=== PATIENT | male | born 1990 | race Caucasian/White ===

== ENCOUNTER → 2021-05-01 | Outpatient (CLI) | payer OTHER, MEDICAID ==
[~2021-05-01] MED LIST: ASPI1TAB6 PO; anexsia PO
== END ==
LOC: M LABSMTC 09:12
PROVIDERS: ATTEND Anesthesiology
DX: Z11.52 Encounter for screening for COVID-19 (principal); Z20.822 Contact with and (suspected) exposure to COVID-19

== ENCOUNTER 2021-06-09 14:13 | Day surgery (SDC) | payer OTHER ==
[~2021-06-09] VITALS: Ht 180.3 cm; Wt 64.9 kg
[~2021-06-09 14:13] MED LIST changes: +AMPICILLIN SOD/SULBACTAM SOD 3 GM in D5W MINI-BAG PLUS 100 ML IV ONE; +FAMO20TA5 PO; +LR 1,000 ML IV ONE; +SUCR1TAB56 PO; +dexameTHASONE 4 MG/ML 1ML VIAL (J1100 PER 1MG) IV ONE
--- OUTSIDE RECORDS SUMMARY | 2021-06-09 14:18 | CCD ---
Author Author [facility] Organization [facility] Address Unknown Phone Unavailable Care Team Providers Care Shank Skinner Name Role Phone Verena Andrew PA Unavailable Unavailable Kamran, F Jayro PA Unavailable Unavailable Kamran, F Jayro PA Unavailable Unavailable Lagrange, F Jayro PA Unavailable Unavailable Lagrange, F Jayro PA Unavailable Unavailable Kamran, F Jayro PA Unavailable Unavailable Kamran, F Jayro PA Unavailable Unavailable Kamran, F Jayro PA Unavailable Unavailable Kamran, F Jayro PA Unavailable Unavailable Kamran, F Jayro PA Unavailable Unavailable Hadian, Bruno Unavailable Unavailable Hadian, Bruno Unavailable Unavailable Hadian, Bruno Unavailable Unavailable Hadian, Bruno Unavailable Unavailable Hadian, Bruno Unavailable Unavailable Hadian, Bruno Unavailable Unavailable Hadian, Bruno Unavailable Unavailable Hadian, Bruno Unavailable Unavailable Hadian, Bruno Unavailable Unavailable Hadian, Bruno Unavailable Unavailable Hadian, Bruno Unavailable Unavailable Hadian, Bruno Unavailable Unavailable Hadian, Bruno Unavailable Unavailable Hadian, Bruno Unavailable Unavailable Hadian, Bruno Unavailable Unavailable Hadian, Bruno Unavailable Unavailable Hadian, Bruno Unavailable Unavailable Hadian, Rbuno Unavailable Unavailable Hadian, Bruno Unavailable Unavailable Hadian, Bruno Unavailable Unavailable Hadian, Bruno Unavailable Unavailable Hadian, Bruno Unavailable Unavailable Hadian, Bruno Unavailable Unavailable Hadian, Bruno Unavailable Unavailable Hadian, Bruno Unavailable Unavailable Hadian, Bruno Unavailable Unavailable Hadian, Bruno Unavailable Unavailable Hadian, Bruno Unavailable Unavailable Hadian, Bruno Unavailable Unavailable Hadian, Bruno Unavailable Unavailable Hadian, Bruno Unavailable Unavailable Hadian, Bruno Unavailable Unavailable Hadian, Bruno Unavailable Unavailable Hadian, Bruno Unavailable Unavailable Hadian, Bruno Unavailable Unavailable Hadian, Bruno Unavailable Unavailable Hadian, Bruno Unavailable Unavailable Hadian, Bruno Unavailable Unavailable Hadian, Bruno Unavailable Unavailable Hadian, Bruno Unavailable Unavailable Hadian, Bruno Unavailable Unavailable Hadian, Bruno Unavailable Unavailable UnkenholKarri matt MD Unavailable Unavailable UnkenholKarri matt MD Unavailable Unavailable UnkenholKarri matt MD Unavailable Unavailable UnkenholKarri matt MD Unavailable Unavailable UnkenholKarri matt MD Unavailable Unavailable Unkenholvernell M Darwin MD Unavailable Unavailable MODESTA, A MARTINE PA Unavailable Unavailable MODESTA, A MARTINE PA Unavailable Unavailable MODESTA, A MARTINE PA Unavailable Unavailable MODESTA, A MARTINE PA Unavailable Unavailable MODESTA, A MARTINE PA Unavailable Unavailable MODESTA, A MARTINE PA Unavailable Unavailable MODESTA, A MARTINE PA Unavailable Unavailable MODESTA, A MARTINE PA Unavailable Unavailable MODESTA, A MARTINE PA Unavailable Unavailable MODESTA, A MARTINE PA Unavailable Unavailable MODESTA, A MARTINE PA Unavailable Unavailable MODESTA, A MARTINE PA Unavailable Unavailable MODESTA, A MARTINE PA Unavailable Unavailable Cougler, S Jose Daniel PHYTOPATHOLOGY TEACHER Unavailable Unavailable Cougler, S Jose Daniel PHYTOPATHOLOGY TEACHER Unavailable Unavailable Cougler, S Jose Daniel PHYTOPATHOLOGY TEACHER Unavailable Unavailable Cougler, S Jose Adniel PHYTOPATHOLOGY TEACHER Unavailable Unavailable Cougler, S Jose Daniel PHYTOPATHOLOGY TEACHER Unavailable Unavailable Cougler, S Jose Daniel PHYTOPATHOLOGY TEACHER Unavailable Unavailable Cougler, S Jose Daniel PHYTOPATHOLOGY TEACHER Unavailable Unavailable Cougler, S Jose Daniel PHYTOPATHOLOGY TEACHER Unavailable Unavailable Cougler, S Jose Daniel PHYTOPATHOLOGY TEACHER Unavailable Unavailable Cougler, S Jose Daniel PHYTOPATHOLOGY TEACHER Unavailable Unavailable Cougler, S Jose Daniel PHYTOPATHOLOGY TEACHER Unavailable Unavailable Cougler, S Jose Daniel PHYTOPATHOLOGY TEACHER Unavailable Unavailable Cougler, S Jose Daniel PHYTOPATHOLOGY TEACHER Unavailable Unavailable Cougler, S Jose Daniel PHYTOPATHOLOGY TEACHER Unavailable Unavailable Cougler, S Jose Daniel PHYTOPATHOLOGY TEACHER Unavailable Unavailable Cougler, S Jose Daniel PHYTOPATHOLOGY TEACHER Unavailable Unavailable Cougler, S Jose Daniel PHYTOPATHOLOGY TEACHER Unavailable Unavailable Cougler, S Jose Daniel PHYTOPATHOLOGY TEACHER Unavailable Unavailable Cougler, S Jose Daniel PHYTOPATHOLOGY TEACHER Unavailable Unavailable Cougler, S Jose Daniel PHYTOPATHOLOGY TEACHER Unavailable Unavailable Cougler, S Jose Daniel PHYTOPATHOLOGY TEACHER Unavailable Unavailable Cougler, S Jose Daniel PHYTOPATHOLOGY TEACHER Unavailable Unavailable Cougler, S Jose Daniel PHYTOPATHOLOGY TEACHER Unavailable Unavailable Cougler, S Jose Daniel PHYTOPATHOLOGY TEACHER Unavailable Unavailable Cougler, S Jose Adniel PHYTOPATHOLOGY TEACHER Unavailable Unavailable Cougler, S Jose Daniel PHYTOPATHOLOGY TEACHER Unavailable Unavailable Cougler, S Jose Daniel PHYTOPATHOLOGY TEACHER Unavailable Unavailable Cougler, S Jose Daniel PHYTOPATHOLOGY TEACHER Unavailable Unavailable Cougler, S Jose Daniel PHYTOPATHOLOGY TEACHER Unavailable Unavailable Cougler, S Jose Daniel PHYTOPATHOLOGY TEACHER Unavailable Unavailable Cougler, S Jose Daniel PHYTOPATHOLOGY TEACHER Unavailable Unavailable Cougler, S Jose Daniel PHYTOPATHOLOGY TEACHER Unavailable Unavailable Cougler, S Jose Daniel PHYTOPATHOLOGY TEACHER Unavailable Unavailable Cougler, S Jose Daniel PHYTOPATHOLOGY TEACHER Unavailable Unavailable Cougler, S Jose Daniel PHYTOPATHOLOGY TEACHER Unavailable Unavailable Cougler, S Jose Daniel PHYTOPATHOLOGY TEACHER Unavailable Unavailable Cougler, S Jose Daniel PHYTOPATHOLOGY TEACHER Unavailable Unavailable Cougler, S Jose Daniel PHYTOPATHOLOGY TEACHER Unavailable Unavailable Cougler, S Jose Daniel PHYTOPATHOLOGY TEACHER Unavailable Unavailable Cougler, S Jose Daniel PHYTOPATHOLOGY TEACHER Unavailable Unavailable Cougler, S Jose Daniel PHYTOPATHOLOGY TEACHER Unavailable Unavailable Cougler, S Jose Daniel PHYTOPATHOLOGY TEACHER Unavailable Unavailable Cougler, S Jose Daniel PHYTOPATHOLOGY TEACHER Unavailable Unavailable Cougler, S Jose Daniel PHYTOPATHOLOGY TEACHER Unavailable Unavailable Cougler, S Jose Daniel PHYTOPATHOLOGY TEACHER Unavailable Unavailable Ivan Harmon MD Unavailable Unavailable Joseph Nelson Unavailable + NelsonJoseph Unavailable + NelsonJoseph Unavailable Joseph Nelson Unavailable Joseph Nelson Unavailable Joseph Nelson Unavailable Joseph Nelson Unavailable Joseph Nelson Unavailable + Joseph Nelson Unavailable NelsonJoseph Unavailable Joseph Nelson Unavailable Ivan Harmon MD Unavailable Unavailable Ivan Harmon MD Unavailable Unavailable Re-disclosure Warning The records that you are about to access may contain information from federally-assisted alcohol or drug abuse programs. If such information is present, then the following federally mandated warning applies: This information has been disclosed to you from records protected by federal confidentiality rules (42 CFR part 2). The federal rules prohibit you from making any further disclosure of this information unless further disclosure is expressly permitted by the written consent of the person to whom it pertains or as otherwise permitted by 42 CFR part 2. A general authorization for the release of medical or other information is NOT sufficient for this purpose. The Federal rules restrict any use of the information to criminally investigate or prosecute any alcohol or drug abuse patient.The records that you are about to access may contain highly sensitive health information, the redisclosure of which is protected by Article 27-F of the [facility] Public Health law. If you continue you may have access to information: Regarding HIV / AIDS; Provided by facilities licensed or operated by the [facility] Office of Mental Health; or Provided by the [facility] Office for People With Developmental Disabilities. If such information is present, then the following [facility] mandated warning applies: This information has been disclosed to you from confidential records which are protected by state law. State law prohibits you from making any further disclosure of this information without the specific written consent of the person to whom it pertains, or as otherwise permitted by law. Any unauthorized further disclosure in violation of state law may result in a fine or fci sentence or both. A general authorization for the release of medical or other information is NOT sufficient authorization for further disc losure. Allergies and Adverse Reactions Type Description Substance Reaction Status Data Source(s ) Drug allergy Drug allergy hydrocodone (From Vicodin) [facility] Drug allergy Drug allergy codeine phosphate (From Tylenol-Codeine #3) [facility] Drug allergy Drug allergy acetaminophen (From Vicodin) [facility] Encounters Encounter Providers Location Date Indications Data Source(s ) Outpatient Attender: Bruno Jordan [facility] 08:18:00 AM EST - 06/05/2021 08:19:00 AM EST PREOP [facility] PREOP Patient discharged. Emergency Attender: Trini Harmon MDAttender: Trini Harmon MD ED-ED 04/29/2021 08:13:00 AM EDT - 04/29/2021 10:40:00 AM EDT STOMACH ISSUES [facility] STOMACH ISSUES Patient discharged. Emergency Attender: Darwin Singleton MD ED-ED 02/05 11:37:00 AM EDT - 02/22/2021 02:12:00 PM EDT STOMACH PAIN [facility] STOMACH PAIN Patient discharged. Outpatient [facility] 11/21/2020 09:52:00 AM EDT [facility] Emergency Attender: MARTINE MILLAN ED-ED 11/20 09:55:00 PM EDT - 11/21/2020 02:50:00 AM EDT RT SIDE PAIN, HARD TIME BREATHING [facility] RT SIDE PAIN, HARD TIME BREATHING Patient discharged. Emergency Attender: Manuelito MILLAN ED-ED 021 05:07:00 AM EST - 08/15/2020 05:49:00 AM EST MOUTH PAIN [facility] MOUTH PAIN Patient discharged. Outpatient Attender: Bruno Jordan ED-LABPNP 09:42:00 AM EST - 07/06/2020 09:43:00 AM EST Z20.828 [facility] Z20.828 Patient discharged. Outpatient [facility] 05/15/2020 02:25:00 PM EST [facility] Emergency Attender: Jose Daniel Patrick NP ED-ED 05/14 04:13:00 PM EST - 05/14/2020 06:09:00 PM EST STOMACH PAIN [facility] STOMACH PAIN Patient discharged. Outpatient [facility] 04/20/2020 08:11:00 PM EDT [facility] Emergency Attender: Jayro MILLAN ED-ED 02:34:00 PM EDT - 04/20/2020 04:15:00 PM EDT VOMITING X3DAYS [facility] VOMITING X3DAYS Patient discharged. Medications Medication Brand Name Start Date Product Form Dose Route Admi nistrative Instructions Pharmacy Instructions Status Indications Reaction Description Data Source(s) Ondansetron 4 MG Disintegrating Oral Tablet ONDANSETRON 05/01/2021 12:00:00 AM EDT tablet,disintegrating 12 DISSOLVE O NE TABLET ON TONGUE EVERY 8 HOURS NEEDED FOR NAUSEA DISSOLVE ONE TABLET ON TONGUE EVERY 8 HO URS NEEDED FOR NAUSEA SOLD: 05/03/2021 [facility] Famotidine 20 MG Oral Tablet FAMOTIDINE 05/01/2021 12:00:00 AM EDT tab let 15 TAKE ONE TABLET BY MOUTH EVERY DAY AT BEDTIME TAKE ONE TABLET BY MOUTH EVERY DAY AT BEDTIME SOLD: 05/03/2021 [facility] 1 gram 02/22/2021 12:00:00 AM EDT tablet 60 TAKE ONE TABLET BY MOUTH TWICE A DAY TAKE ONE TABLET BY MOUTH TWICE A DAY SOLD: 02/22/2021 [facility] Famotidine 20 MG Oral Tablet FAMOTIDINE 02/22/2021 12:00:00 AM EDT tab let 60 TAKE ONE TABLET BY MOUTH TWICE A DAY TAKE ONE TABLET BY MOUTH TWICE A DAY SOLD: 02/22/2021 [facility] 300 mg 08/15/2020 12:00:00 AM EST capsule 40 TAKE ONE CAPSULE BY MOUTH FOUR TIMES A DAY FOR 10 DAYS TAKE ONE CAPSULE BY MOUTH FOUR TIMES A DAY FOR 10 DAYS SOLD: 08/22/2020 [facility] 20 mg 05/14/2020 12:00:00 AM EST capsule,delayed release (DR/EC) 30 TAKE ONE CAPSULE BY MOUTH EVERY DAY TAKE ONE CAPSULE BY MOUTH EVERY DAY SOLD: 05/15/2020 [facility] Insurance Providers Payer name Policy type / Coverage type Policy ID Covered green party ID Covered green party's relationship to [place] Policy [place] Plan Information [facility] [id number] Attending [id number] [facility] [id number] SP [id number] [place] [id number] SP [id number] C [facility] [id number] SP [id number] [facility] [id number] S [id number] [facility] [id number] S [id number] [facility] [id number] Unemployed [id number] SELF PAY 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 [id number] MEDICAID [id number] S [id number] SELF-PAY UNAVAILABLE S UNAVAILA BLE SELF PAY UNAVAILABLE SP UNAVAILA BLE MEDICAID [id number] [facility] PLAN [id number] 18 [id number] MEDICAID -O/P [id number] MEDICAID P [id number] S [id number] [facility] [id number] MEDICAID [id number] S [id number] [facility] 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 spital Surgeries/Procedures Procedure Description Date Indications Data Source(s) URNLS DIP STICK/TABLET RGNT AUTO W/O MICROSCOPY URINALYSIS A UTO W/O SCOPE 02/22/2021 12:00:00 AM [facility] BLOOD COUNT COMPLETE AUTO&AUTO DIFRNTL WBC COUNT COMPLETE CB C W/AUTO DIFF WBC 02/22/2021 12:00:00 AM [facility] LIPASE ASSAY OF LIPASE 02/22/2021 12:00:00 AM [facility] COMPREHENSIVE METABOLIC PANEL COMPREHEN METABOLIC PANEL 02/05 12:00:00 AM [facility] Non-covered item or service NON-COVERED ITEM OR SERVICE 02/05 12:00:00 AM [facility] Infusion, normal saline solution , 1000 cc 02/22/2021 12:00:00 AM [facility] Injection, pantoprazole sodium, per vial 02/22/2021 12 :00:00 AM [facility] Injection, ondansetron hydrochloride, per 1 mg 021 12:00:00 AM [facility] THERAPEUTIC INJECTION IV PUSH EACH NEW DRUG TX/PRO/DX INJ NE W DRUG ADDON 02/22/2021 12:00:00 AM EDT [facility] THER PROPH/DX NJX IV PUSH SINGLE/1ST SBST/DRUG THER/PROPH/DI AG INJ IV PUSH 02/22/2021 12:00:00 AM EDT [facility] EMERGENCY DEPARTMENT VISIT HIGH/URGENT SEVERITY EMERGENCY DE PT VISIT 02/22/2021 12:00:00 AM EDT [facility] CT ABDOEN & PELVIS W/CONTRAST MATERIAL 11/20/2020 12:0 0:00 AM EDT [facility] CT THORAX W/CONTRAST MATERIAL 11/20/2020 12:00:00 AM E DT [facility] Low osmolar contrast material, 300-399 mg/ml iodine concentr ation, per ml 11/20/2020 12:00:00 AM EDT [facility] [address]37 11/20/2020 12:00:00 AM EDT [facility] URINALYSIS MICROSCOPIC ONLY 11/20/2020 12:00:00 AM [facility] THROMBOPLASTIN TIME PARTIAL PLASMA/WHOLE BLOOD 021 12:00:00 AM [facility] PROTHROMBIN TIME [facility]20[facility] [address] 12:00:00 AM EDT [facility] 68331 11/20/2020 12:00:00 AM EDT [facility] MAGNESIUM 11/20/2020 12:00:00 AM EDT [facility] 35901 11/20/2020 12:00:00 AM EDT [facility] NATRIURETIC PEPTIDE 11/20/2020 12:00:00 AM [facility] TROPONIN QUANTITATIVE 11/20[facility]IBR[facility] DGRADJ PRODUCTS D-DIMER QUANTITATIVE 11/20/2020 12:00:00 AM [facility] Injection, lorazepam, 2 mg 11/20/2020 12:00:00 AM [facility] Results ID Date Data Source [id number] 06/05/2021 08:05:00 AM [facility] Name Value Range Interpretation Code Description Data Shawanda rce(s) Supporting Document(s) Respiratory specimen severe acute respir atory syndrome coronavirus 2 (SARS-CoV-2) RNA Negative (qualifier value) [facility] This lab was ordered by [facility] and reported by . ID Date Data Source [id number] 06/06/2021 07:35:00 AM EST [facility] Name Value Range Interpretation Code Description Data Shawanda rce(s) Supporting Document(s) SARS-CoV-2 RNA INHOUSE Negative Normal (applies to non-n umeric results) [facility] THIS IS A STATE REPORTABLE COMMUNICABLE DISEASE. Testing was performed using the MediSens COVID-19 MDx Assay. This test has been authorized by FDA under an (Emergency Use Authorization) EUA for use by authorized laboratories for individuals who are suspected of COVID-19 by their healthcare provider. This test is only authorized for the duration of the declaration that circumstances exist justifying the authorization of emergency use of in vitro diagnostic tests for detection and/or diagnosis of SARS-CoV-2. Methodology: Endpoint RT-PCR. Fact sheets for this EUA assay can be found at the following links: Providers: https://www.fda.gov/media/344633/download Patients : https://www.fda.gov/media/644597/download Negative results do not preclude SARS-CoV-2 infection and should not be used as the sole basis for patient management decisions. Negative results must be combined with clinical observations,patient history, and epidemiological information. ID Date Data Source [id number] 05/01/2021 09:30:00 AM [facility]T [facility] Name Value Range Interpretation Code Description Data Shawanda rce(s) Supporting Document(s) SARS coronavirus 2 RNA [Presence] in Res piratory specimen by STEPH with probe detection [facility] This lab was ordered by [facility] a nd reported by [facility]. ID Date Data Source [id number] 04/29/2021 09:52:00 AM EDT [facility] Name Value Range Interpretation Code Description Data Shawanda rce(s) Supporting Document(s) Sodium 137 mmol/L 136-145 Normal (applies to non-numeric resul ts) [facility] Potassium 3.5-5.1 Normal (applies to non-numeric resul ts) [facility] Chloride 97 mmol/L 98-107 Below low normal [facility] spital Carbon Dioxide CO2 21-32 Normal (applies to non-numer ic results) [facility] Anion Gap 5.0-16.0 Normal (applies to non-numeric resul ts) [facility] BUN 20 mg/dL 7-18 Above high normal [facility] ospital Creatinine,Serum 0.8-1.5 Normal (applies to non-numeric results) [facility] GFR >60 Normal (applies to non-numeric results) [facility] Glucose Level 117 mg/dL 60-[address] [facility] Reference range is only applicable when patient is fasting Note the following drug interference: Sulfasalazine Sulfapyridine Can see falsely depressed Can see falsely elevated result with up to 17% results with up to 11% decrease in measurement increase in measurement Recommend patients be collected for this test prior to administration of either drug. Calcium 8.5-10.1 Normal (applies to non-numeric resul ts) [facility] Bilirubin,Total 0.1-1.9 Normal (applies to non-numeric results) [facility] SGOT(AST) 39 U/L 15-37 Above high normal [facility] ospital Note the following drug interference: Sulfasalazine Sulfapyridine Can see falsely depressed Can see falsely elevated result with up to 10% results with up to 10% decrease in measurement increase in measurement Recommend patients be collected for this test prior to administration of either drug. SGPT(ALT) 56 U/L 12-78 Normal (applies to non-numeric resul ts) [facility] Note the following drug interference: Sulfasalazine Sulfapyridine Can see falsely depressed Can see falsely elevated result with up to 29% results with up to 10% decrease in measurement increase in measurement Recommend patients be collected for this test prior to administration of either drug. Alkaline Phosphatase 53 U/L 38-126 Normal (applies to non-num jocelyn results) [facility] can increase Alkaline Phosp le vels up to 2 times the normal adult value. Normal values for children and adolescents are 2 to 3 times the normal adult value. Total Protein 6.0-8.2 Normal (applies to non-numeric re sults) [facility] Albumin Level 3.4-5.0 Normal (applies to non-numeric re sults) [facility] ID Date Data Source [id number] 04/29/2021 09:52:00 AM EDT [facility] Name Value Range Interpretation Code Description Data Shawanda rce(s) Supporting Document(s) Magnesium 1.8-2.4 Normal (applies to non-numeric resul ts) [facility] ID Date Data Source [id number] 04/29/2021 09:52:00 AM EDT [facility] Name Value Range Interpretation Code Description Data Shawanda rce(s) Supporting Document(s) Lipase 78 U/L 73-393 Normal (applies to non-numeric resul ts) [facility] ID Date Data Source [id number] 04/29/2021 09:41:00 AM EDT [facility] Name Value Range Interpretation Code Description Data Shawanda rce(s) Supporting Document(s) White Blood Count 3.5-10.5 Normal (applies to non-numeri c results) [facility] Red Blood Count 4.30-5.70 Normal (applies to non-numeric results) [facility] Hemoglobin 13.5-17.5 Normal (applies to non-numeric resul ts) [facility] Hematocrit 38.8-50.0 Normal (applies to non-numeric resul ts) [facility] Mean Corpuscular Volume 81.2-95.1 Normal (applies to non- numeric results) [facility] Mean Corpuscular Hgb 25.6-32.2 Normal (applies to non-num jocelyn results) [facility] Mean Corpuscular Hgb Conc 32.0-36.0 Normal (applies to no n-numeric results) [facility] Red Cell Distribution Width 11.8-15.6 Normal (appli es to non-numeric results) [facility] Platelet Count 241 x10 3/uL 150-450 Normal (applies to non-numeric results) [facility] Mean Platelet Volume 9.4-12.4 Below low normal [facility] Neutrophils% (Auto) 31.0-71.0 Above high normal [facility] Lymphocytes% (Auto) 20.0-55.0 Below low normal [facility] Monocytes% (Auto) 4.0-12.0 Normal (applies to non-numeri c results) [facility] Eosinophils% (Auto) 1.0-8.0 Below low normal [facility] Basophils% (Auto) 0.0-2.0 Normal (applies to non-numeri c results) [facility] Immature Granulocytes% (Auto) 0.0-2.0 Normal (cortney lies to non-numeric results) [facility] Neutrophils# (Auto) 1.50-6.20 Normal (applies to non-nume danilo results) [facility] [facility] Lymphocytes# (Auto) 1.20-4.00 Below low normal [facility] Monocytes# (Auto) 0.00-0.90 Normal (applies to non-numeri c results) [facility] Eosinophils# (Auto) 0.00-0.50 Normal (applies to non-nume danilo results) [facility] Basophils# (Auto) 0.00-0.20 Normal (applies to non-numeri c results) [facility] Immature Granulocytes# (Auto) 0.00-7.00 No rmal (applies to non-numeric results) [facility] Slide Reviewed By Normal (applies to non-numeri c results) [facility] Slide has been reviewed and findings con firmed by a technologist/strain technician. ID Date Data Source [id number] 02/23/2021 11:39:00 AM EDT [facility] Collected By: Nurse Initials: fiorella Time Collected: 1310 Name Value Range Interpretation Code Description Data Shawanda rce(s) Supporting Document(s) Color,Urine Colorl-Dk Y Normal (applies to non-numeric res ults) [facility] Clarity,Urine Clear Normal (applies to non-numeric re sults) [facility] Specific Cornucopia,Urine 1.005-1.030 [facility] pH,Urine 5.0-8.0 Normal (applies to non-numeric resul ts) [facility] Protein,Urine Negative Normal (applies to non-numeric re sults) [facility] Glucose,Urine Negative Normal (applies to non-numeric re sults) [facility] Ketones,Urine Negative [facility] Blood,Urine Negative Normal (applies to non-numeric resu lts) [facility] Bilirubin,Urine Negative [facility] pital Urobilinogen,Urine 0.2-1.0 Normal (applies to non-numer ic results) [facility] Leukocyte Esterase,Urine Negative Normal (applies to non -numeric results) [facility] Nitrite,Urine Negative Normal (applies to non-numeric re sults) [facility] ID Date Data Source [id number] 02/23/2021 11:39:00 AM EDT [facility] Name Value Range Interpretation Code Description Data Shawanda rce(s) Supporting Document(s) Sodium 139 mmol/L 136-145 Normal (applies to non-numeric resul ts) [facility] Potassium 3.5-5.1 Normal (applies to non-numeric resul ts) [facility] Chloride 96 mmol/L 98-107 Below low normal [facility] spital Carbon Dioxide CO2 21-32 Normal (applies to non-numer ic results) [facility] Anion Gap 5.0-16.0 Normal (applies to non-numeric resul ts) [facility] BUN 21 mg/dL 7-18 Above high normal [facility] ospital Creatinine,Serum 0.8-1.5 Normal (applies to non-numeric results) [facility] GFR >60 Normal (applies to non-numeric results) [facility] Glucose Level 135 mg/dL 60-[address] [facility] Reference range is only applicable when patient is fasting Note the following drug interference: Sulfasalazine Sulfapyridine Can see falsely depressed Can see falsely elevated result with up to 17% results with up to 11% decrease in measurement increase in measurement Recommend patients be collected for this test prior to administration of either drug. Calcium 8.5-10.1 Normal (applies to non-numeric resul ts) [facility] Bilirubin,Total 0.1-1.9 Normal (applies to non-numeric results) [facility] SGOT(AST) 16 U/L 15-37 Normal (applies to non-numeric resul ts) [facility] Note the following drug interference: Sulfasalazine Sulfapyridine Can see falsely depressed Can see falsely elevated result with up to 10% results with up to 10% decrease in measurement increase in measurement Recommend patients be collected for this test prior to administration of either drug. SGPT(ALT) 26 U/L 12-78 Normal (applies to non-numeric resul ts) [facility] Note the following drug interference: Sulfasalazine Sulfapyridine Can see falsely depressed Can see falsely elevated result with up to 29% results with up to 10% decrease in measurement increase in measurement Recommend patients be collected for this test prior to administration of either drug. Alkaline Phosphatase 68 U/L 38-126 Normal (applies to non-num jocelyn results) [facility] can increase Alkaline Phosp le vels up to 2 times the normal adult value. Normal values for children and adolescents are 2 to 3 times the normal adult value. Total Protein 6.0-8.[address] [facility] Albumin Level 3.4-5.0 Normal (applies to non-numeric re sults) [facility] ID Date Data Source [id number] 02/23/2021 11:39:00 AM EDT [facility] Name Value Range Interpretation Code Description Data Shawanda rce(s) Supporting Document(s) Lipase 73 U/L 73-393 Normal (applies to non-numeric resul ts) [facility] ID Date Data Source [id number] 02/23/2021 11:39:00 AM EDT [facility] Name Value Range Interpretation Code Description Data Shawanda rce(s) Supporting Document(s) White Blood Count 3.5-10.5 Above high normal [facility] Red Blood Count 4.30-5.70 Normal (applies to non-numeric results) [facility] Hemoglobin 13.5-17.5 Normal (applies to non-numeric resul ts) [facility] Hematocrit 38.8-50.0 Normal (applies to non-numeric resul ts) [facility] Mean Corpuscular Volume 81.2-95.1 Normal (applies to non- numeric results) [facility] Mean Corpuscular Hgb 25.6-32.2 Normal (applies to non-num jocelyn results) [facility] Mean Corpuscular Hgb Conc 32.0-36.0 Normal (applies to no n-numeric results) [facility] Red Cell Distribution Width 11.8-15.6 Normal (appli es to non-numeric results) [facility] Platelet Count 380 x10 3/uL 150-450 Normal (applies to non-numeric results) [facility] Mean Platelet Volume 9.4-12.4 Below low normal [facility] Neutrophils% (Auto) 31.0-71.0 Above high normal [facility] Lymphocytes% (Auto) 20.0-55.0 Below low normal [facility] Monocytes% (Auto) 4.0-12.0 Normal (applies to non-numeri c results) [facility] Eosinophils% (Auto) 1.0-8.0 Below low normal [facility] Basophils% (Auto) 0.0-2.0 Normal (applies to non-numeri c results) [facility] Immature Granulocytes% (Auto) 0.0-2.0 Normal (cortney lies to non-numeric results) [facility] Neutrophils# (Auto) 1.50-6.20 Above high normal [facility] Lymphocytes# (Auto) 1.20-4.00 Normal (applies to non-nume danilo results) [facility] Monocytes# (Auto) 0.00-0.90 Above high normal [facility] Eosinophils# (Auto) 0.00-0.50 Normal (applies to non-nume danilo results) [facility] Basophils# (Auto) 0.00-0.20 Normal (applies to non-numeri c results) [facility] Immature Granulocytes# (Auto) 0.00-7.00 No rmal (applies to non-numeric results) [facility] ID Date Data Source [id number] 11/23/2020 09:11:00 AM EDT [facility] spital Procedure Performed By: [facility] [address] [place] [address] Director: Esau Shearer MD . Name Value Range Interpretation Code Description Data Shawanda rce(s) Supporting Document(s) [facility]rine [facility] ID Date Data Source [id number] 11/20/2020 11:08:00 PM EDT [facility] Collected By: Nurse Initials: JT Time Collected: 2232 Collected By: Nurse Initials: JT Time Collected: 2232 Name Value Range Interpretation Code Description Data [facility] rce(s) Supporting Document(s) Color,Urine Colorl-Dk Y Normal (applies to non-numeric res ults) [facility] Clarity,Urine Clear Normal (applies to non-numeric re sults) [facility] Specific Cornucopia,Urine 1.005-1.030 Normal (applies to non- numeric results) [facility] pH,Urine 5.0-8.0 Normal (applies to non-numeric resul ts) [facility] Protein,Urine Negative Normal (applies to non-numeric re sults) [facility] Glucose,Urine Negative Normal (applies to non-numeric re sults) [facility] Ketones,Urine Negative Normal (applies to non-numeric re sults) [facility] Blood,Urine Negative Normal (applies to non-numeric resu lts) [facility] Bilirubin,Urine Negative Normal (applies to non-numeric results) [facility] Urobilinogen,Urine 0.2-1.0 Normal (applies to non-numer ic results) [facility] Leukocyte Esterase,Urine Negative [facility] Nitrite,Urine Negative Normal (applies to non-numeric re sults) [facility] ID Date Data Source [id number] 11/20/2020 11:08:00 PM EDT [facility] Collected By: Nurse Initials: JT Time Collected: 2232 Collected By: Nurse Initials: JT Time Collected: 2232 Name Value Range Interpretation Code Description Data Shawanda rce(s) Supporting Document(s) RBC,Urine None Seen [facility] WBC,Urine None Seen [facility] Casts,Urine None Seen Normal (applies to non-numeric resu lts) [facility] Epithelial Cells,Urine None - Few Normal (applies to non-n umeric results) [facility] Bacteria,Urine None Seen [facility] ital Mucus,Urine None Seen [facility] ID Date Data Source [id number] 11/20/2020 11:02:00 PM [facility] Name Value Range Interpretation Code Description Data Shawanda rce(s) Supporting Document(s) UDS Benzodiazepines Screen Negative Normal (applies to n on-numeric results) [facility] UDS Cocaine Screen Negative Normal (applies to non-numer ic results) [facility] UDS Ampetamine Screen Negative Normal (applies to non-nu meric results) [facility] UDS Cannabinoids Screen Negative Normal (applies to non- numeric results) [facility] UDS Opiates Screen Negative Normal (applies to non-numer ic results) [facility] UDS Barbiturates Screen Negative Normal (applies to non- numeric results) [facility] Threshold Levels Benzodiazepine 200 ng/mL Cocaine 300 ng/mL Amphetamines 1000 ng/mL Cannabinoids (THC) 50 ng/mL Opiates 300 ng/mL Barbiturates 200 ng/mL All positive findings are presumptive and unconfirmed. Confirmation of positive results are performed only at request of provider. Unconfirmed results must not be used for non-medical purposes (i.e. preemployment and legal purposes) ID Date Data Source [id number] 11/21/2020 12:04:00 AM EDT [facility] Imaging Services Department Imaging Report [address], [place] [address] %(RAD)RES..mtdd.print.filter("line") Name: BREA العلي : 1990 Age/Sex: 30M Ordering Provider: YANA Rosales Med Rec #: [id number] Reg Status: REG ER Room #: Date of Service: 11/20/20 Report Number: [id number] cc:YANA Rosales; PCP None Send Report To: EXAM: CT Abdomen and Pelvis with IV contrast CLINICAL HISTORY: GH sob, rt chest pain TECHNIQUE: Axial computed tomography images of the abdomen and pelvis with intravenous contrast. / All CT scans at this facility use dose modulation, itera tive reconstruction, and/or weight-based dosing when appropriate to reduce radiation dose to as low as reasonably achievable. CONTRAST: with intravenous contrast. With; 100/370 COMPARISON: None provided. FINDINGS: LUNG BASES: The lung bases appear clear. No pleural effusions are seen. LIVER: Unremarkable. GALLBLADDER AND BILE DUCTS: The gallbladder appears within normal limits. No radioopaque gallstones are seen. No biliary ductal dilatation is evident. PANCREAS: Unremarkable. SPLEEN: Unremarkable. ADRENAL GLANDS: Unremarkable. KIDNEYS, URETERS , AND BLADDER: The kidneys appear within normal limits. There is no hydronephrosis or hydroureter. No urinary calculi are seen. STOMACH AND BOWEL: Fluid-filled loops of bowel. No transition point. APPENDIX: No evidence of acute appendicitis on CT examination. PERITONEUM: No free fluid. No free air. LYMPH NODES: No lymphadenopathy is evident. REPRODUCTIVE: Unremarkable as visualized. VASCULATURE: No evidence of abdominal aortic aneurysm. BONES: No aggressive appearing osseous lesion. No acute osseous pathology evident.Impressions: Fluid-filled loops of bowel may be related to enteritis or ileus. No definite transition point is seen to suggest obstruction.b Time portable performed: Fluoroscopy time in seconds: Number of Exposures: Contrast Agent in ml: Isovue 370 Method of Administration: Existing IV REPORT SIGNATURE ON FILE Reported By: Dano Maki MD 11/21/20 0004 Dictation Date/Time: 11/21/203 Transcribed Date/Time: 11/21/203 Ladle Cleaner: Name Value Range Interpretation Code Description Data Shawanda rce(s) Supporting Document(s) ID Date Data Source [id number] 11/20/2020 11:22:00 PM [facility] Name Value Range Interpretation Code Description Data Shawanda rce(s) Supporting Document(s) D-Dimer,Quant 0.19-0.50 Below low normal [facility] The negative predictive value for DVT or PE is at 98% when the result is below the cut off value of 0.50 mg/L FEU. Increases in D-Dimer concentration observed with thromboembolic events can be variable due to localization, size, and age of thrombus. Therefore, a thromboembolic event cannot be diagnosed with certainty on the basis of the reference range. D-Dimers may also be elevated for a variety of disorders including: advanced age, , coronary disease, cancer, liver disease, infection, inflammation, hematoma, DIC, trauma, post surgery, diabetes, thrombolytic therapy, stress, and general hospitialization. D-Dimer levels may be decreased in patients on anticoagulant therapy. ID Date Data Source [id number] 11/20/2020 11:06:00 PM [facility] Name Value Range Interpretation Code Description Data Shawanda rce(s) Supporting Document(s) PT 9.3-11.3 Normal (applies to non-numeric results) [facility] INR Normal (applies to non-numeric results) [facility] The use of INR is restricted to patients on stable oral anticoagulant. Therapeutic Range: 2.0 - 3.0 High Risk Range: 2.5 - 3.5 ID Date Data Source [id number] 11/20/2020 11:06:00 PM [facility] Name Value Range Interpretation Code Description Data Shawanda rce(s) Supporting Document(s) PTT 23.5-34.6 Normal (applies to non-numeric results) [facility] ID Date Data Source [id number] 11/20/2020 11:00:00 PM EDT [facility] Name Value Range Interpretation Code Description Data Shawanda rce(s) Supporting Document(s) Sodium 138 mmol/L 136-145 Normal (applies to non-numeric resul ts) [facility] Potassium 3.5-5.1 Normal (applies to non-numeric resul ts) [facility] Chloride 100 mmol/L 98-107 Normal (applies to non-numeric resul ts) [facility] Carbon Dioxide CO2 21-32 Normal (applies to non-numer ic results) [facility] Anion Gap 5.0-16.0 Above high normal [facility] ospital BUN 18 mg/dL 7-18 Normal (applies to non-numeric results) [facility] Creatinine,Serum 0.8-1.5 Normal (applies to non-numeric results) [facility] GFR >60 Normal (applies to non-numeric results) [facility] Glucose Level 99 mg/dL 60-99 Normal (applies to non-numeric re sults) [facility] Reference range is only applicable when patient is fasting Note the following drug interference: Sulfasalazine Sulfapyridine Can see falsely depressed Can see falsely elevated result with up to 17% results with up to 11% decrease in measurement increase in measurement Recommend patients be collected for this test prior to administration of either drug. Calcium 8.5-10.1 Normal (applies to non-numeric resul ts) [facility] Bilirubin,Total 0.1-1.9 Normal (applies to non-numeric results) [facility] SGOT(AST) 20 U/L 15-37 Normal (applies to non-numeric resul ts) [facility] Note the following drug interference: Sulfasalazine Sulfapyridine Can see falsely depressed Can see falsely elevated result with up to 10% results with up to 10% decrease in measurement increase in measurement Recommend patients be collected for this test prior to administration of either drug. SGPT(ALT) 31 U/L 12-78 Normal (applies to non-numeric resul ts) [facility] Note the following drug interference: Sulfasalazine Sulfapyridine Can see falsely depressed Can see falsely elevated result with up to 29% results with up to 10% decrease in measurement increase in measurement Recommend patients be collected for this test prior to administration of either drug. Alkaline Phosphatase 73 U/L 38-126 Normal (applies to non-num jocelyn results) [facility] can increase Alkaline Phosp le vels up to 2 times the normal adult value. Normal values for children and adolescents are 2 to 3 times the normal adult value. Total Protein 6.0-8.2 Normal (applies to non-numeric re sults) [facility] Albumin Level 3.4-5.0 Normal (applies to non-numeric re sults) [facility] ID Date Data Source [id number] 11/20/2020 11:00:00 PM T [facility] Value Range Interpretation Code Description Data Shawanda rce(s) Supporting Document(s) Lipase 171 U/L 73-393 Normal (applies to non-numeric resul ts) [facility] ID Date Data Source [id number] 11/20/2020 11:00:00 PM [facility] Value Range Interpretation Code Description Data Shawanda rce(s) Supporting Document(s) Salicylate 2.8-20.0 Normal (applies to non-numeric resul ts) [facility] ID Date Data Source [id number] 11/20/2020 11:00:00 PM [facility] Value Range Interpretation Code Description Data Shawanda rce(s) Supporting Document(s) Troponin I 0.000-0.056 Normal (applies to non-numeric resu lts) [facility] ID Date Data Source [id number] 11/20/2020 11:00:00 PM [facility] Value Range Interpretation Code Description Data Shawanda rce(s) Supporting Document(s) Acetaminophen 10.0-30.0 Below low normal [facility] ID Date Data Source [id number] 11/20/2020 11:00:00 PM T [facility] Name Value Range Interpretation Code Description Data Shawanda rce(s) Supporting Document(s) Magnesium 1.8-2.4 Normal (applies to non-numeric resul ts) [facility] ID Date Data Source [id number] 11/20/2020 10:53:00 PM EDT [facility] Name Value Range Interpretation Code Description Data Shawanda rce(s) Supporting Document(s) B-Type Natriuretic Peptide BNP <125 Normal (applies to non-numeric results) [facility] Results of this test should always be us ed in conjunction with the patients medical history, clinical presentation, and other findings. ID Date Data Source [id number] 11/20/2020 10:46:00 PM EDT [facility] Name Value Range Interpretation Code Description Data Shawanda rce(s) Supporting Document(s) Ethanol Less than 10.0 Above high normal [facility] ID Date Data Source [id number] 11/20/2020 10:30:00 PM EDT [facility] Name Value Range Interpretation Code Description Data Shawanda rce(s) Supporting Document(s) White Blood Count 3.5-10.5 Normal (applies to non-numeri c results) [facility] Red Blood Count 4.30-5.70 Normal (applies to non-numeric results) [facility] Hemoglobin 13.5-17.5 Normal (applies to non-numeric resul ts) [facility] Hematocrit 38.8-50.0 Normal (applies to non-numeric resul ts) [facility] Mean Corpuscular Volume 81.2-95.1 Normal (applies to non- numeric results) [facility] Mean Corpuscular Hgb 25.6-32.2 Normal (applies to non-num jocelyn results) [facility] Mean Corpuscular Hgb Conc 32.0-36.0 Above high normal [facility] Red Cell Distribution Width 11.8-15.6 Normal (appli es to non-numeric results) [facility] Platelet Count 317 x10 3/uL 150-450 Normal (applies to non-numeric results) [facility] Mean Platelet Volume 9.4-12.4 Below low normal [facility] Neutrophils% (Auto) 31.0-71.0 Normal (applies to non-nume danilo results) [facility] Lymphocytes% (Auto) 20.0-55.0 Normal (applies to non-nume danilo results) [facility] Monocytes% (Auto) 4.0-12.0 Normal (applies to non-numeri c results) [facility] Eosinophils% (Auto) 1.0-8.0 Normal (applies to non-nume danilo results) [facility] Basophils% (Auto) 0.0-2.0 Normal (applies to non-numeri c results) [facility] Immature Granulocytes% (Auto) 0.0-2.0 Normal (cortney lies to non-numeric results) [facility] Neutrophils# (Auto) 1.50-6.20 Normal (applies to non-nume danilo results) [facility] Lymphocytes# (Auto) 1.20-4.00 Normal (applies to non-nume danilo results) [facility] Monocytes# (Auto) 0.00-0.90 Normal (applies to non-numeri c results) [facility] Eosinophils# (Auto) 0.00-0.50 Normal (applies to non-nume danilo results) [facility] Basophils# (Auto) 0.00-0.20 Normal (applies to non-numeri c results) [facility] Immature Granulocytes# (Auto) 0.00-7.00 No rmal (applies to non-numeric results) [facility] ID Date Data Source [id number] 11/20/2020 11:36:00 PM EDT [facility] Imaging Services Department Imaging Report [address] [place] [id number] %(RAD)RES..mtdd.print.filter("line") Name: SEVERIANOBREA Bettina : 1990 Age/Sex: 30M Ordering Provider: YANA Rosales Med Rec #: [id number] Reg Status: REG ER Room #: Date of Service: 11/20/20 Report Number: [id number] cc:YANA Rosales; PCP None Send Report To: EXAM: CTA Chest with Intravenous Contrast for PE evaluation CLINICAL HISTORY: GH acute onset sob, rt side cp, ? pe, ? ptx TECHNIQUE: Axial CTA images of the chest with intravenous contrast using a pulmonary embolism protocol. Multiplanar trung nstructed images were created and reviewed. All CT scans at this facility use dose modulation, iterative reconstruction, and/or weight-based dosing when appropriate to reduce radiation dose to as low as reasonably achievable. CONTRAST: With; 100/370 was administered without incident. COMPARISON: None provided. FINDINGS: PULMONARY ARTERIES: No evidence of central or segmental pulmonary embolism is seen. AORTA: There is no evidence for aneurysm or dissection of the thoracic aorta. LUNGS: Cystic change noted in the left lung. Calcified left-sided granuloma. PLEURAL SPACES: No evidence of pneumothorax. No pleural effusion. HEART: Heart size is within normal limits. No significant pericardial effusion. LYMPH NODES: No lymphadenopathy is evident. BONES: No focal osseous abnormality or acute fracture. UPPER ABDOMEN: Images of the upper abdomen are unremarkable.Impressions: No evidence of pulmonary embolus. Time portable performed: Fluoroscopy time in seconds: Number of Exposures: Contrast Agent in ml: Isovue 370 Method of Administration: Existing IV REPORT SIGNATURE ON FILE Reported By: Dano Maki MD 11/20/202335 Dictation Date/Time: 11/20/202335 Transcribed Date/Time: 11/20/202335 Ladle Cleaner: Name Value Range Interpretation Code Description Data Shawanda rce(s) Supporting Document(s) ID Date Data Source [id number] 11/21/2020 08:40:00 AM EDT [facility] Imaging Services Department Imaging Report [address], [place] [address] %(RAD)RES..mtdd.print.filter("line") Name: BREA العلي : 1990 Age/Sex: 30M Ordering Provider: YANA Rosales Med Rec #: [id number] Reg Status: DEP ER Room #: Date of Service: 11/20/20 Report Number: [id number] cc:PCP None Send Report To: [id number] XRP/XR Chest Xray Portable Reason for exam: sob, rt side cp x 20 minutes Comparison: Chest radiograph from 04-16-2019. FINDINGS: Two views of the chest is reviewed with inspiration and expiration views. The cardiomediastinal silhouette is within normal limits. No consolidations, pleural effusions or pneumothorax. A calcified granuloma is seen in the left lung. No acute osseous abnormalities are evident. IMPRESSION: No acute pulmonary disease. Time portable performed: 2245 Fluoroscopy time in seconds: Number of Exposures: Contrast Agent in ml: Method of Administration: REPORT SIGNATURE ON FILE Reported By: Christofer Bueno MD <Electronically signed by Christofer Bueno MD> 11/21/20 1119 Dictation Date/Time: 11/20/20 2235 Transcribed Date/Time: 11/21/20 0840 Ladle Cleaner: LISA Name Value Range Interpretation Code Description Data Shawanda rce(s) Supporting Document(s) ID Date Data Source [id number] 07/11/2020 10:15:00 AM EST [facility] Name Value Range Interpretation Code Description Data Shawanda rce(s) Supporting Document(s) Respiratory specimen severe acute respir atory syndrome coronavirus 2 (SARS-CoV-2) RNA [facility] This lab was ordered by [facility]assidy and reported by . ID Date Data Source [id number] 07/06/2020 03:15:00 PM [facility] Name Value Range Interpretation Code Description Data Shawanda rce(s) Supporting Document(s) SARS-CoV-2 RNA INHOUSE Negative Normal (applies to non-n umeric results) [facility] THIS IS A [facility] REPORTABLE COMMUNICABLE DISEASE. Testing was performed using the Medi[employer] COVID-19 MDx Assay. This test has been authorized by FDA under an (Emergency Use Authorization) EUA for use by authorized laboratories for individuals who are suspected of COVID-19 by their healthcare provider. This test is only authorized for the duration of the declaration that circumstances exist justifying the authorization of emergency use of in vitro diagnostic tests for detection and/or diagnosis of SARS-CoV-2. Methodology: Endpoint RT-PCR. Fact sheets for this EUA assay can be found at the following links: Providers: https://www.fda.gov/media/539276/download Patients : https://www.fda.gov/media/482108/download THIS IS A [facility] REPORTABLE COMMUNICABLE DISEASE Negative results do not preclude SARS-CoV-2 infection and should not be used as the sole basis for patient management decisions. Negative results must be combined with clinical observations,patient history, and epidemiological information. ID Date Data Source [id number] 06/20/2020 11:49:00 AM [facility] Procedure Performed By: [facility] [address] [place] [address] Director: Esau Shearer MD Name Value Range Interpretation Code Description Data Shawanda rce(s) Supporting Document(s) Urine Culture [facility] ID Date Data Source [id number] 05/17/2020 10:13:00 AM EST [facility] Procedure Performed By: [facility] [address] [place] [address] Director: Esau Shearer MD Procedure Performed By: [facility] [address] [place] [address] Director: Esau Shearer MD Name Value Range Interpretation Code Description Data Shawanda rce(s) Supporting Document(s) Urine Culture [facility] ID Date Data Source [id number] 05/14/2020 06:06:00 PM [facility] Collected By: Nurse Initials: AF Time Collected: 1728 Collected By: Nurse Initials: AF Time Collected: 1728 Name Value Range Interpretation Code Description Data Shawanda rce(s) Supporting Document(s) Color,Urine Colorl-Dk Y Normal (applies to non-numeric res ults) [facility] Clarity,Urine Clear Normal (applies to non-numeric re sults) [facility] Specific Cornucopia,Urine 1.005-1.030 Normal (applies to non- numeric results) [facility] pH,Urine 5.0-8.0 Normal (applies to non-numeric resul ts) [facility] Protein,Urine Negative Normal (applies to non-numeric re sults) [facility] Glucose,Urine Negative Normal (applies to non-numeric re sults) [facility] Ketones,Urine Negative [facility] kassidy Blood,Urine Negative Normal (applies to non-numeric resu lts) [facility] Bilirubin,Urine Negative Normal (applies to non-numeric results) [facility] Urobilinogen,Urine 0.2-1.0 [facility] Leukocyte Esterase,Urine Negative Normal (applies to non -numeric results) [facility] Nitrite,Urine Negative Normal (applies to non-numeric re sults) [facility] ID Date Data Source [id number] 05/14/2020 06:06:00 PM [facility] Collected By: Nurse Initials: AF Time Collected: 1728 Collected By: Nurse Initials: AF Time Collected: 1728 Name Value Range Interpretation Code Description Data [facility] rce(s) Supporting Document(s) RBC,Urine None Seen [facility] WBC,Urine None Seen [facility] Casts,Urine None Seen Normal (applies to non-numeric resu lts) [facility] Squamous Cells,Urine None Seen [facility] Bacteria,Urine None Seen [facility] ital Mucus,Urine [facility] ID Date Data Source [id number] 05/14/2020 05:25:00 PM EST [facility] Name Value Range Interpretation Code Description Data Shawanda rce(s) Supporting Document(s) Sodium 135 mmol/L 136-145 Below low normal [facility]spital Potassium 3.5-5.1 Normal (applies to non-numeric resul ts) [facility] Chloride 94 mmol/L 98-107 Below low normal [facility] spital Carbon Dioxide CO2 21-32 Normal (applies to non-numer ic results) [facility] Anion Gap 5.0-16.0 Normal (applies to non-numeric resul ts) [facility] BUN 29 mg/dL 7-18 Above high normal [facility] ospital Creatinine,Serum 0.8-1.5 Normal (applies to non-numeric results) [facility] GFR >60 Normal (applies to non-numeric results) [facility] Glucose Level 118 mg/dL 60-[address] [facility] Reference range is only applicable when patient is fasting Note the following drug interference: Sulfasalazine Sulfapyridine Can see falsely depressed Can see falsely elevated result with up to 17% results with up to 11% decrease in measurement increase in measurement Recommend patients be collected for this test prior to administration of either drug. Calcium 8.5-10.1 Normal (applies to non-numeric resul ts) [facility] Bilirubin,Total 0.1-1.9 Normal (applies to non-numeric results) [facility] SGOT(AST) 16 U/L 15-37 Normal (applies to non-numeric resul ts) [facility] Note the following drug interference: Sulfasalazine Sulfapyridine Can see falsely depressed Can see falsely elevated result with up to 10% results with up to 10% decrease in measurement increase in measurement Recommend patients be collected for this test prior to administration of either drug. SGPT(ALT) 24 U/L 12-78 Normal (applies to non-numeric resul ts) [facility] Note the following drug interference: Sulfasalazine Sulfapyridine Can see falsely depressed Can see falsely elevated result with up to 29% results with up to 10% decrease in measurement increase in measurement Recommend patients be collected for this test prior to administration of either drug. Alkaline Phosphatase 56 U/L 38-126 Normal (applies to non-num jocelyn results) [facility] can increase Alkaline Phosp le vels up to 2 times the normal adult value. Normal values for children and adolescents are 2 to 3 times the normal adult value. Total Protein 6.0-8.2 Normal (applies to non-numeric re sults) [facility] Albumin Level 3.4-5.0 Normal (applies to non-numeric re sults) [facility] ID Date Data Source [id number] 05/14/2020 05:25:00 PM [facility] Name Value Range Interpretation Code Description Data Shawanda rce(s) Supporting Document(s) Phosphorus 2.5-4.9 Normal (applies to non-numeric resul ts) [facility] ID Date Data Source [id number] 05/14/2020 05:25:00 PM [facility] Name Value Range Interpretation Code Description Data Shawanda rce(s) Supporting Document(s) Magnesium 1.8-2.4 Normal (applies to non-numeric resul ts) [facility] ID Date Data Source [id number] 05/14/2020 05:25:00 PM [facility] Value Range Interpretation Code Description Data Shawanda rce(s) Supporting Document(s) Amylase 80 U/L 25-115 Normal (applies to non-numeric resul ts) [facility] ID Date Data Source [id number] 05/14/2020 05:25:00 PM [facility] Value Range Interpretation Code Description Data Shawanda rce(s) Supporting Document(s) Lipase 127 U/L 73-393 Normal (applies to non-numeric resul ts) [facility] ID Date Data Source [id number] 05/14/2020 05:02:00 PM [facility] Value Range Interpretation Code Description Data Shawanda rce(s) Supporting Document(s) White Blood Count 3.5-10.5 Above high normal [facility] Red Blood Count 4.30-5.70 Normal (applies to non-numeric results) [facility] Hemoglobin 13.5-17.5 Normal (applies to non-numeric resul ts) [facility] Hematocrit 38.8-50.0 Normal (applies to non-numeric resul ts) [facility] Mean Corpuscular Volume 81.2-95.1 Normal (applies to non- numeric results) [facility] Mean Corpuscular Hgb 25.6-32.2 Normal (applies to non-num jocelyn results) [facility] Mean Corpuscular Hgb Conc 32.0-36.0 Normal (applies to no n-numeric results) [facility] Red Cell Distribution Width 11.8-15.6 Normal (appli es to non-numeric results) [facility] Platelet Count 322 x10 3/uL 150-450 Normal (applies to non-numeric results) [facility] Mean Platelet Volume 9.4-12.4 Below low normal [facility] Neutrophils% (Auto) 31.0-71.0 Above high normal [facility] Lymphocytes% (Auto) 20.0-55.0 Below low normal [facility] Monocytes% (Auto) 4.0-12.0 Normal (applies to non-numeri c results) [facility] Eosinophils% (Auto) 1.0-8.0 Below low normal [facility] Basophils% (Auto) 0.0-2.0 Normal (applies to non-numeri c results) [facility] Immature Granulocytes% (Auto) 0.0-2.0 Normal (cortney lies to non-numeric results) [facility] Neutrophils# (Auto) 1.50-6.20 Above high normal [facility] Lymphocytes# (Auto) 1.20-4.00 Normal (applies to non-nume danilo results) [facility] Monocytes# (Auto) 0.00-0.90 Normal (applies to non-numeri c results) [facility] Eosinophils# (Auto) 0.00-0.50 Normal (applies to non-nume danilo results) [facility] Basophils# (Auto) 0.00-0.20 Normal (applies to non-numeri c results) [facility] Immature Granulocytes# (Auto) 0.00-7.00 No rmal (applies to non-numeric results) [facility] ID Date Data Source [id number] 04/22/2020 07:04:00 PM EDT [facility] Name Value Range Interpretation Code Description Data Shawanda rce(s) Supporting Document(s) Respiratory specimen severe acute respir atory syndrome coronavirus 2 (SARS-CoV-2) RNA [facility] ital This lab was ordered by [facility] kierra and reported by [facility]. ID Date Data Source [id number] 04/22/2020 11:23:00 PM EDT [facility] COVID-19 Specimen Source NASOPHARYNGEAL Is Patient admitted or to be admitted? NFirst test? NOEmployed in healthcare? NOSymptomatic per CDC? NOHospitalized? NOICU? NOResident in congregated care? ex care home, ARC NO? NO Name Value Range Interpretation Code Description Data Shawanda rce(s) Supporting Document(s) SARS-CoV-2 RNA Negative Normal (applies to non-numeric r esults) [facility] 2019-novel Coronavirus (2019-nCoV) not d etected by the qRT-PCR assay. Consider testing for other respiratory viruses or re-collecting for 2019-nCoV testing. Note: Optimum timing for peak viral levels during infections caused by 2019- nCoV have not been determined. Collection of multiple specimens from the same patient may be necessary to detect the virus. Limitations Positive results are indicative of active infection with SARS-CoV-2 but do not rule out bacterial infection or co-infection with other viruses. The agent detected may not be the definite cause of disease. In addition, detection of viral RNA may not indicate the presence of infectious virus or that SARS-CoV-2 is the causative agent for clinical symptoms. Negative results do not preclude SARS-CoV-2 infection and should not be used as the sole basis for patient management decisions. Negative results must be combined with clinical observations, patient history, and epidemiological information. False negative results may also occur if amplification inhibitors are present in the specimen or if inadequate numbers of organisms are present in the specimen. Optimum specimen types and timing for peak viral levels during infections caused by SARS-CoV-2 have not been fully determined. Collection of multiple specimens (types and time points) from the same patient may be necessary to detect the virus. The test was validated for use with upper respiratory specimens obtained via nasopharyngeal or oropharyngeal swabs in VTM, UTM, M4, M5, M6, saline, and MTM media. The performance of this test has not been established for other specimens. Specimens collected using other FDA recommended Specimen Collection Materials listed in the FDA COVID-19 [employer] communication (October 01, 2019) are processed with the caveat that they were not all validated for use with this test and the result must be interpreted in this context. Furthermore, a false negative results may occur if a specimen is improperly collected, transported or handled. If the virus mutates in the RT- PCR target region, SARS-CoV-2 may not be detected or may be detected less predictably. Inhibitors or other types of interference may produce a false negative result. An interference study evaluating the effect of common cold medications was not performed. This test is not FDA-cleared but its performance characteristics were established by our CLIA-certified, CAP-accredited, high complexity laboratory in accordance with CLIA regulations, [employer] (CAP) guidelines (Sep 24, 2019), and FDA guidance (Sep 05, 2019). This test is only for use under the Food and Drug Administration's Emergency Use Authorization. THIS IS A STATE REPORTABLE COMMUNICABLE DISEASE. 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 ex care home, ARC: N ?: N Please indicate the Triage TierN Test performed or referred by The [address] [address] ID Date Data Source [id number] 04/22/2020 06:56:[address] [facility] COVID-19 Specimen Source NASOPHARYNGEAL Is Patient admitted or to be admitted? NFirst test? NOEmployed in healthcare? NOSymptomatic per CDC? NOHospitalized? NOICU? NOResident in congregated care? ex care home, ARC NO? NO Name Value Range Interpretation Code Description Data Shawanda rce(s) Supporting Document(s) SARS-CoV-2 RNA Negative Normal (applies to non-numeric r esults) [facility] 2019-novel Coronavirus (2019-nCoV) not d etected by the qRT-PCR assay. Consider testing for other respiratory viruses or re-collecting for 2019-nCoV testing. Note: Optimum timing for peak viral levels during infections caused by 2019- nCoV have not been determined. Collection of multiple specimens from the same patient may be necessary to detect the virus. Limitations Positive results are indicative of active infection with SARS-CoV-2 but do not rule out bacterial infection or co-infection with other viruses. The agent detected may not be the definite cause of disease. In addition, detection of viral RNA may not indicate the presence of infectious virus or that SARS-CoV-2 is the causative agent for clinical symptoms. Negative results do not preclude SARS-CoV-2 infection and should not be used as the sole basis for patient management decisions. Negative results must be combined with clinical observations, patient history, and epidemiological information. False negative results may also occur if amplification inhibitors are present in the specimen or if inadequate numbers of organisms are present in the specimen. Optimum specimen types and timing for peak viral levels during infections caused by SARS-CoV-2 have not been fully determined. Collection of multiple specimens (types and time points) from the same patient may be necessary to detect the virus. The test was validated for use with upper respiratory specimens obtained via nasopharyngeal or oropharyngeal swabs in VTM, UTM, M4, M5, M6, saline, and MTM media. The performance of this test has not been established for other specimens. Specimens collected using other FDA recommended Specimen Collection Materials listed in the FDA [employer] communication (October 01, 2019) are processed with the caveat that they were not all validated for use with this test and the result must be interpreted in this context. Furthermore, a false negative results may occur if a specimen is improperly collected, transported or handled. If the virus mutates in the RT- PCR target region, SARS-CoV-2 may not be detected or may be detected less predictably. Inhibitors or other types of interference may produce a false negative result. An interference study evaluating the effect of common cold medications was not performed. This test is not FDA-cleared but its performance characteristics were established by our CLIA-certified, CAP-accredited, high complexity laboratory in accordance with CLIA regulations, [employer] (CAP) guidelines (Sep 24, 2019), and FDA guidance (Sep 05, 2019). This test is only for use under the Food and Drug Administration's Emergency Use Authorization. THIS IS A STATE REPORTABLE COMMUNICABLE DISEASE. 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 ex care home, ARC: N ?: N Please indicate the Triage TierN Test performed or referred by The [address] [address] ID Date Data Source [id number] 04/20/2020 03:24:00 PM EDT [facility] Name Value Range Interpretation Code Description Data Shawanda rce(s) Supporting Document(s) Sodium 140 mmol/L 136-145 Normal (applies to non-numeric resul ts) [facility] Potassium 3.5-5.1 Normal (applies to non-numeric resul ts) [facility] Chloride 100 mmol/L 98-107 Normal (applies to non-numeric resul ts) [facility] Carbon Dioxide CO2 21-32 Normal (applies to non-numer ic results) [facility] Anion Gap 5.0-16.0 Normal (applies to non-numeric resul ts) [facility] BUN 21 mg/dL 7-18 Above high normal [facility] ospital Creatinine,Serum 0.8-1.5 Normal (applies to non-numeric results) [facility] GFR >60 Normal (applies to non-numeric results) [facility] Glucose Level 124 mg/dL 60-[address] [facility] Reference range is only applicable when patient is fasting Note the following drug interference: Sulfasalazine Sulfapyridine Can see falsely depressed Can see falsely elevated result with up to 17% results with up to 11% decrease in measurement increase in measurement Recommend patients be collected for this test prior to administration of either drug. Calcium 8.5-10.1 Normal (applies to non-numeric resul ts) [facility] Bilirubin,Total 0.1-1.9 Normal (applies to non-numeric results) [facility] SGOT(AST) 18 U/L 15-37 Normal (applies to non-numeric resul ts) [facility] Note the following drug interference: Sulfasalazine Sulfapyridine Can see falsely depressed Can see falsely elevated result with up to 10% results with up to 10% decrease in measurement increase in measurement Recommend patients be collected for this test prior to administration of either drug. SGPT(ALT) 29 U/L 12-78 Normal (applies to non-numeric resul ts) [facility] [facility] Note the following drug interference: Sulfasalazine Sulfapyridine Can see falsely depressed Can see falsely elevated result with up to 29% results with up to 10% decrease in measurement increase in measurement Recommend patients be collected for this test prior to administration of either drug. Alkaline Phosphatase 62 U/L 38-126 Normal (applies to non-num jocelyn results) [facility] can increase Alkaline Phosp le vels up to 2 times the normal adult value. Normal values for children and adolescents are 2 to 3 times the normal adult value. Total Protein 6.0-8.2 Normal (applies to non-numeric re sults) [facility] Albumin Level 3.4-5.0 Normal (applies to non-numeric re sults) [facility] ID Date Data Source [id number] 04/20/2020 03:24:00 PM EDT [facility] Name Value Range Interpretation Code Description Data Shawanda rce(s) Supporting Document(s) Lipase 79 U/L 73-393 Normal (applies to non-numeric resul ts) [facility] ID Date Data Source [id number] 04/20/2020 03:24:00 PM EDT [facility] Name Value Range Interpretation Code Description Data Shawanda rce(s) Supporting Document(s) White Blood Count 3.5-10.5 Normal (applies to non-numeri c results) [facility] Red Blood Count 4.30-5.70 Normal (applies to non-numeric results) [facility] Hemoglobin 13.5-17.5 Normal (applies to non-numeric resul ts) [facility] Hematocrit 38.8-50.0 Normal (applies to non-numeric resul ts) [facility] Mean Corpuscular Volume 81.2-95.1 Normal (applies to non- numeric results) [facility] Mean Corpuscular Hgb 25.6-32.2 Normal (applies to non-num jocelyn results) [facility] Mean Corpuscular Hgb Conc 32.0-36.0 Normal (applies to no n-numeric results) [facility] Red Cell Distribution Width 11.8-15.6 Normal (appli es to non-numeric results) [facility] Platelet Count 314 x10 3/uL 150-450 Normal (applies to non-numeric results) [facility] Mean Platelet Volume 9.4-12.4 Below low normal [facility] Neutrophils% (Auto) 31.0-71.0 Above high normal [facility] Lymphocytes% (Auto) 20.0-55.0 Below low normal [facility] Monocytes% (Auto) 4.0-12.0 Normal (applies to non-numeri c results) [facility] Eosinophils% (Auto) 1.0-8.0 Below low normal [facility] Basophils% (Auto) 0.0-2.0 Normal (applies to non-numeri c results) [facility] Immature Granulocytes% (Auto) 0.0-2.0 Normal (cortney lies to non-numeric results) [facility] Neutrophils# (Auto) 1.50-6.20 Above high normal [facility] Lymphocytes# (Auto) 1.20-4.00 Normal (applies to non-nume danilo results) [facility] Monocytes# (Auto) 0.00-0.90 Normal (applies to non-numeri c results) [facility] Eosinophils# (Auto) 0.00-0.50 Normal (applies to non-nume danilo results) [facility] Basophils# (Auto) 0.00-0.20 Normal (applies to non-numeri c results) [facility] Immature Granulocytes# (Auto) 0.00-7.00 No rmal (applies to non-numeric results) [facility] Procedure Social History No Information Vital Signs ID Date Data Source [id number] 04/29/2021 10:43:00 AM EDT [facility] spital Name Value Range Interpretation Code Description Data Source(s) Weight Measurement Method 8 8 [facility] Weight 2240 2240 [facility] pital Temperature Source 7 7 [facility] Temperature 98.4 98.4 [facility] spital Respiratory Effort 1 1 [facility] Respiratory Rate [address] [facility] Pulse Assessment Method 4 4 [facility] Pulse Rate 52 52 [facility] pital Height 71 71 [facility] pital Blood Pressure 132/92 132/92 [facility] Weight Measurement Method 8 8 [facility] Weight 2240 2240 [facility] pital Temperature Source 7 7 [facility] Temperature 98.4 98.4 [facility] spital Respiratory Effort 1 1 [facility] Respiratory Rate [address] [facility] Pulse Assessment Method 4 4 [facility] Pulse Rate 52 52 [facility] pital Height 71 71 [facility] pital Blood Pressure 132/92 132/92 [facility] ID Date Data Source [id number] 05/06/2021 07:33:00 PM EDT [facility] spital Name Value Range Interpretation Code Description Data Source(s) Weight Measurement Method 8 8 [facility] Weight 2400 2400 [facility] pital Temperature Source 7 7 [facility] Temperature 98 98 [facility] Respiratory Effort 1 1 [facility] Respiratory Rate [address] [facility] Pulse Assessment Method 4 4 [facility] Pulse Rate 80 80 [facility] pital Height 71 71 [facility] pital Blood Pressure 117/72 117/72 [facility] Weight Measurement Method 8 8 [facility] Weight 2400 2400 [facility] pital Temperature Source 7 7 [facility] Temperature 98 98 [facility] Respiratory Effort 1 1 [facility] Respiratory Rate [address] [facility] Pulse Assessment Method 4 4 [facility] Pulse Rate 80 80 [facility] pital Height 71 71 [facility] pital Blood Pressure 117/72 117/72 [facility] Weight Measurement Method 8 8 [facility] Weight 2400 2400 [facility] pital Temperature Source 7 7 [facility] Temperature 99.0 99.0 [place] [facility] Respiratory Effort 1 1 [facility] Respiratory Rate [address] [facility] Pulse Assessment Method 4 4 [facility] Pulse Rate 65 65 [facility] pital Height 71 71 [facility] pital Blood Pressure 126/78 126/78 [facility] ID Date Data Source [id number] 11/22/2020 10:10:00 AM EDT [facility] Name Value Range Interpretation Code Description Data Source(s) Weight (Calculated Kilograms) 63.50 63.50 [facility] Height (Calculated Centimeters) 177.8 177. 8 [facility] Body Mass Index (BMI) 20.0 20.0 [facility] ID Date Data Source [id number] 11/23/2020 09:11:00 AM EDT [facility] Name Value Range Interpretation Code Description Data Source(s) Temperature Source 7 7 [facility] Temperature 99.2 99.2 [facility] Respiratory Effort 1 1 [facility] Respiratory Rate [address] [facility] Pulse Assessment Method 4 4 [facility] Pulse Rate 72 72 [facility] pital Height 66 66 [facility] pital Blood Pressure 109/61 109/61 [facility] ID Date Data Source [id number] 08/15/2020 05:49:00 AM EST [facility] Name Value Range Interpretation Code Description Data Source(s) Weight Measurement Method 8 8 [facility] Weight 2384 2384 [facility] pital Temperature Source 7 7 [facility] Temperature 98.8 98.8 [facility] Respiratory Effort 1 1 [facility] Respiratory Rate [address] [facility] Pulse Rate 76 76 [facility] pital Height 64 64 [facility] pital Blood Pressure 133/84 133/84 [facility] Weight Measurement Method 8 8 [facility] Weight 2384 2384 [facility] pital Temperature Source 7 7 [facility] Temperature 98.8 98.8 [facility] Respiratory Effort 1 1 [facility] Respiratory Rate [address] [facility] Pulse Rate 76 76 [facility] pital Height 64 64 [facility] pital Blood Pressure 133/84 133/84 [facility] ID Date Data Source [id number] 05/17/2020 10:13:00 AM EST [facility] Name Value Range Interpretation Code Description Data Source(s) Weight Measurement Method 8 8 [facility] Weight 2320 2320 [facility] pital Temperature Source 7 7 [facility] Temperature 98.2 98.2 [facility] [facility] Respiratory Effort 1 1 [facility] Respiratory Rate [address] [facility] Pulse Assessment Method 4 4 [facility] Pulse Rate 90 90 [facility] pital Height 71 71 [facility] pital Blood Pressure 123/83 123/83 [facility] Weight Measurement Method 8 8 [facility] Weight 2320 2320 [facility] pital Temperature Source 7 7 [facility] Temperature 98.2 98.2 [place] [facility] Respiratory Effort 1 1 [facility] Respiratory Rate 18 18 [facility] Pulse Assessment Method 4 4 [facility] Pulse Rate 90 90 [facility] pital Height 71 71 [facility] pital Blood Pressure 123/83 123/83 [facility] Weight Measurement Method 8 8 [facility] Weight 2320 2320 [facility] pital Temperature Source 7 7 [facility] Temperature 98.2 98.2 [place] [facility] Respiratory Effort 1 1 [facility] Respiratory Rate [address] [facility] Pulse Assessment Method 4 4 [facility] Pulse Rate 66 66 [facility] pital Height 71 71 [facility] pital Blood Pressure 134/82 134/82 [facility] ID Date Data Source [id number] 04/22/2020 06:56:00 PM EDT [facility] Name Value Range Interpretation Code Description Data Source(s) Weight (Calculated Kilograms) 63.50 63.50 [facility] Height (Calculated Centimeters) 177.8 177. 8 [facility] Body Mass Index (BMI) 20.0 20.0 [facility] ID Date Data Source [id number] 04/20/2020 04:15:00 PM EDT [facility] spital Name Value Range Interpretation Code Description Data Source(s) Weight Measurement Method 8 8 [facility] Weight 2400 2400 [facility] pital Temperature Source 7 7 [facility] Temperature 98.1 98.1 [facility] spital Respiratory Effort 1 1 [facility] Respiratory Rate [address] [facility] Pulse Assessment Method 4 4 [facility] Pulse Rate 73 73 [facility] 125/87 125/87 [facility] Weight Measurement Method 8 8 [facility] Weight 2400 2400 [facility] pital Temperature Source 7 7 [facility] Temperature 98.1 98.1 [facility] spital Respiratory Effort 1 1 [facility] Respiratory Rate [address] [facility] Pulse Assessment Method 4 4 [facility] Pulse Rate 73 73 [facility] pital Height 71 71 [facility] pital Blood Pressure 125/87 125/87 [facility]
[2021-06-09] MEDS ORDERED: propofoL 200 MG/20 ML VIAL As Ordered ONE (15:41)
[2021-06-09] MEDS ORDERED: LIDOCAINE 2% 100MG/5ML SDV (FOR ANES.) As Ordered ONE (15:41)
[2021-06-09] MEDS ORDERED: ROCURONIUM BROMIDE 50 MG/5 ML VIAL As Ordered ONE (15:41)
[2021-06-09] MEDS ORDERED: ONDANSETRON 4MG/2ML VIAL As Ordered ONE (15:41)
[2021-06-09] MEDS ORDERED: KETOROLAC 60MG 2ML VIAL As Ordered ONE (15:41)
[2021-06-09] MEDS ORDERED: ACETAMINOPHEN 1000MG 100ML IV BTL (OFIRMEV) (J0131 PER 10MG) As Ordered ONE ×2 (15:41→18:06)
[2021-06-09] MEDS ORDERED: dexameTHASONE 4 MG/ML 1ML VIAL (J1100 PER 1MG) As Ordered ONE ×2 (15:41→16:34)
[2021-06-09] MEDS ORDERED: MIDAZOLAM INJ 2MG/2ML VIAL (J2250 PER 1MG) As Ordered ONE (15:41)
[2021-06-09] MEDS ORDERED: SUGAMMADEX SODIUM 500 MG/5 ML VIAL (BRIDION) As Ordered ONE (15:41)
[2021-06-09] MEDS ORDERED: fentaNYL 100 MCG/2 ML INJECTION (J3010) As Ordered ONE (15:42)
[2021-06-09] MEDS ORDERED: OXYMETAZOLINE 0.05% NASAL SPRAY (AFRIN) As Ordered ONE (15:49)
[2021-06-09] MEDS ORDERED: LIDOCAINE 2% W/ EPINEPHRINE 1.7 ML DENTAL INJ As Ordered ONE (16:27)
[2021-06-09] MEDS ORDERED: LIDOCAINE 5% OINT 30GM TUBE As Ordered ONE (16:30)
[2021-06-09] MEDS ORDERED: HYDROmorphone HCL 2 MG/ML 1ML VIAL As Ordered ONE (17:38)
[2021-06-09] MEDS ORDERED: METOCLOPRAMIDE INJ 10MG/2ML VIAL (J2765 PER 1) As Ordered ONE (17:38)
[2021-06-09] MEDS ORDERED: LACRILUBE (AKWA TEARS) OPHTH OINT 3.5 GM As Ordered ONE (17:57)
[2021-06-09] MEDS ORDERED: ONDANSETRON 4MG/2ML VIAL IV PRN (18:40)
[2021-06-09] MEDS ORDERED: LR 1,000 ML IV SCH (18:40)
[2021-06-09] MEDS ORDERED: fentaNYL 100 MCG/2 ML INJECTION (J3010) IV PRN (18:40)
[2021-06-09 19:18] VITALS: BP 131/80
--- NOTE | 2021-06-10 09:42 | RO ---
OPERATIVE NOTE DATE OF OPERATION: 06/09/2021 PREOPERATIVE DIAGNOSES: 1. Severe dental anxiety. 2. Decayed and symptomatic hopeless dentition including impacted #17 and symptomatic impacted #32. POSTOPERATIVE DIAGNOSES: Status post: 1. Severe dental anxiety. 2. Decayed and symptomatic hopeless dentition including impacted #17 and symptomatic impacted #32. PROCEDURE PERFORMED: Extraction of all erupted teeth as well as impacted #32. SURGEON: Eran Kang DMD, MD RN POOL: ANESTHESIA: General endotracheal anesthesia via nasal JUAN PABLO. SPECIMEN: Teeth for gross only. INDICATIONS FOR SURGERY: Bret is a pleasant 30-year-old male referred to my office for evaluation for extraction of all of his teeth. He does report daily pain and swelling stemming from the teeth and gums, inability to eat which is affecting his nutrition and weight. He does have significant dental anxiety and tells me that he wants to be unconscious for the procedure. I offered and explained office based conscious sedation versus general anesthesia in operating room setting. He does desire to be unconscious and tells me he wants to have the procedure done in operating room setting. Clinical exam reveals grossly decayed and symptomatic dentition as well as full bony impacted #17 and 32 with tenderness to palpation and inflammation of the mucosa overlying impacted #32. All the risks, benefits and alternatives were explained to the patient and Bret reports that he wants to have all of his teeth removed including #32. However, he does not want to have #17 removed as it is not symptomatic. A complete history and physical was obtained and is in the patient's chart as well as informed consent which is signed and is in the patient's chart. DESCRIPTION OF PROCEDURE: The patient was taken back to the operating room. He was laid supine on the operating room table. Ulnar nerve protectors were placed. Noninvasive cardiac monitors were applied. At that point, the patient underwent general anesthesia and was intubated with a nasal JUAN PABLO. He was prepped and draped in the usual sterile fashion. A time out procedure was performed to identify the patient, the procedure and any other precautions. Preoperative antibiotics and steroids were administered in the IV. At this point a moist throat pack was inserted in the patient's oropharynx followed by the administration of 10 carpules of 2% Lidocaine with 1:100,000 Epinephrine as local infiltrations and blocks. A full thickness flap was released at sites #2, 3, 4, 5, 6, 11, 12, 13, 14, 15, 18, 19, 20, 21, 22, 27, 28, 29, 30, 31 and 32. A small buccal trough was then released in all of those areas as well as tooth #32 which was sectioned buccolingually and the fragments were then removed. All the teeth were luxated and delivered with ease. No sinus exposure was noted. Alveolar nerve was not noted. Lingual cortices were intact. All the sockets were curetted and irrigated. All the flaps were then closed with 3-0 chromic sutures. Routine forceps extraction of teeth #7, 8, 9, 10, 23, 24, 25, and 26 was performed. All those sockets were also irrigated and suctioned. At this point the oral cavity was copiously irrigated and suctioned. The throat pack was removed. Hemostasis was easily achieved. He was extubated without any incident and taken back to the PACU. COMPLICATIONS: None. ESTIMATED BLOOD LOSS: 30 mL. DRAINS: No drains placed.
== END 2021-06-09 19:21 | disposition home or self-care (01) ==
LOC: M SDC 14:13
PROVIDERS: ATTEND Dentist
DX: K02.9 Dental caries, unspecified (principal); F40.232 Fear of other medical care; K01.1 Impacted teeth; F41.9 Anxiety disorder, unspecified; K21.9 Gastro-esophageal reflux disease without esophagitis; M54.9 Dorsalgia, unspecified; F17.210 Nicotine dependence, cigarettes, uncomplicated; Z79.899 Other long term (current) drug therapy; Z88.5 Allergy status to narcotic agent; Z88.6 Allergy status to analgesic agent
CPT/HCPCS: 88300; D7140; D7210; D7220; D9223; J0131; J1100; J1170; J2250; J2405; J2765; J3010